=== PATIENT | male | born 1955 | race Caucasian/White ===

== ENCOUNTER 2021-05-20 08:00 | Outpatient (RCR) | payer MEDICARE, BC, SELFPAY | END 2021-06-25 14:00 | disposition home or self-care (01) | LOC: PT.CARL 08:00 | PROVIDERS: PCP Emergency Medicine; Visit Provider Orthopaedic Surgery Adult Reconstructive Orthopaedic Surgery | DX: M54.16 Radiculopathy, lumbar region (principal) | CPT/HCPCS: 97010; 97014; 97110; 97140; 97163; 97164; G0283 ==

== ENCOUNTER → 2022-09-02 07:40 | Outpatient (CLI) | payer MEDICARE, BC, SELFPAY ==
--- NOTE | 2022-09-02 07:41 | CA_ITS ---
APPROVED REPORT EXAM: Comprehensive 2D, Doppler, and color-flow Echocardiogram [employer]que Kiln Placer: Renee King RT(R) Ht: 6 ft 0 in Wt: 218lbs BSA: 2.21 BP: 180/102 mmHg Indications: Abn EKG, smoker, HTN, JVD, RBBB 2D Dimensions LVOT 2.31 cm (M/F) 1.5-2.5 LVEF (Hicks's) 58.10 % M: 52 - 72 LV Volume 131.40 mL M: 62 - 150 LV Volume Index 59.46 mL/m2 M: 34 - 74 LA Volume 39.00 mL LA Volume Index 17.65 mL/m2 (M/F) 16-34 M-Mode Dimensions RVDd 3.26 cm (0.9-2.6) LA Diam 4.00 cm (1.9-4.0) LVDd 5.34 cm (3.5-5.7) Ao Diam 3.83 cm (2.0-3.7) LVDs 4.45 cm (3.5-5.7) IVSd 0.97 cm (0.6-1.1) PWd 1.06 cm (0.6-1.1) EF (Teich) 34.60% FS 16.70% EDV (Teich) 137.70 mL ESV (Teich) 90.10 mL LV Diastology E Decel Time 190.00 (160-240 msec) E/A Ratio 1.2 MED E' 8.10 (< 7 cm/sec) E'/MED E' Ratio 9.43 (>14) LAT E' 8.40 (<10 cm/sec) E/LAT E' Ratio 9.10 (>14) Mitral Valve MV E Max Tyler. 76.00 (40-130 cm/s) MV A Velocity 65.00 (40-130 cm/s) E/A Ratio 1.18 MV Decel. Time 190.00 (160-240 ms) MV PHT 56.00 ms Left Ventricle Left atrium is mildly enlarged, left ventricle is normal size, mild concentric left ventricular hypertrophy, estimated ejection fraction 55% with no regional wall motion abnormality, grade 1 diastolic dysfunction seen without tissue Doppler evidence of raise left atrial pressure. Right Ventricle Right atrium and right ventricle are mildly enlarged with normal contractility. Aortic Valve Aortic valve is minimally thickened and fibrosed there is no aortic stenosis aortic insufficiency. Mitral Valve Mitral valve grossly normal, there is trace mitral regurgitation. Tricuspid Valve Tricuspid grossly normal, there is trace tricuspid regurgitation, tricuspid regurgitation jet velocity is inadequate for calculation of the right ventricular systolic pressure. Pulmonic Valve Pulmonic valve is poorly visualized. Great Vessels Aortic root is normal size. Inferior vena cava is poorly visualized. Pericardium No significant pericardial effusion noted. Conclusion 1. Mild biatrial enlargement, normal left ventricular size, estimated ejection fraction 55% with no regional wall motion abnormality, grade 1 diastolic dysfunction seen without tissue Doppler evidence of raise left atrial pressure. 2. Mildly enlarged right ventricle with normal contractility. 3. Trace mitral and tricuspid regurgitation. 4. No significant pericardial effusion. 5. Inferior vena cava is poorly visualized. Electronically signed by : Indra Baez MD 09/02/2022 16:31:50
--- NOTE | 2022-09-02 07:41 | CA_ITS ---
FINAL REPORT CLINICAL HISTORY: HTN FINDINGS: Aorta velocity: 109 cm/sec Right kidney: 11.5 cm. No evidence of hydronephrosis or mass. Right intrarenal RI: 0.66 Right renal artery velocity: 144 cm/sec. Right RAR (Renal artery-Aortic Ratio): 1.32 Left Kidney: 11.9 cm. No evidence of hydronephrosis or mass. Left intrarenal RI: 0.73 Left renal artery velocity: 163 cm/sec. Left RAR (Renal Artery-Aortic Ratio): 1.5 IMPRESSION: No evidence of significant renal artery stenosis. CT angiogram or postcontrast MR angiogram would be more sensitive for evaluation of possible renal artery stenosis. Reviewed, Interpreted and Dictated by Gonzalo Muniz III, MD Transcribed by Oracio Cooper Authenticated and [facility]
--- NOTE | 2022-09-02 08:37 | XR_ITS ---
FINAL REPORT TECHNIQUE: Chest PA & Lateral CLINICAL HISTORY: COUGH, follow up from pna FINDINGS: 2 views of the chest were performed. The heart size is normal. The mediastinum is within normal limits. There is no acute cardiopulmonary process. There are no pleural effusions. There is no pneumothorax. The bony thorax appears intact. IMPRESSION: No acute cardiopulmonary process. Reviewed, Interpreted and Dictated by Gonzalo Muniz III, MD Transcribed by Oracio Cooper Authenticated and [facility]
== END ==
PROVIDERS: PCP Nurse Practitioner; Visit Provider Physician Assistant
DX: F17.200 Nicotine dependence, unspecified, uncomplicated (principal); I10 Essential (primary) hypertension; I45.10 Unspecified right bundle-branch block; R94.31 Abnormal electrocardiogram [ECG] [EKG]
CPT/HCPCS: 71046; 93306; 93976

== ENCOUNTER → 2022-09-23 11:02 | Outpatient (CLI) | payer MEDICARE, BC, SELFPAY ==
--- NOTE | 2022-09-23 11:02 | NM_ITS ---
APPROVED REPORT Exam: Nuclear Stress Test Indication: Chest pain, Abnormal EKG, HTN, Tobacco use, Family history Patient Location: Outpatient Stress Tech: Mi Benton NM Tech:Sherri Lopez, ARRT, RT (R)(N) Ht: 6 ft 0 in Wt: 219 lbs HR: 64 bpm BP: 123/75 mmHg BSA: 2.21 m2 TID: 1.24 History: Chest pain, Abnormal EKG, HTN, Tobacco use, Family history Procedure: Patient received a 0.4 mg of intravenous Lexiscan, resting heart rate 64 bpm, resting blood pressure 123/75 mmHg, with Lexiscan maximum heart rate achived was 87 bpm which is Less than 85 % of the maximum predicted heart rate and blood pressure was 126/81 mmHg. With Lexiscan, patient denied any complaint of chest pain. Electrocardiogram Resting electrocardiogram shows sinus rhythm with Lexiscan there is less than 1.[address] segment depression noted from the baseline EKG. The EKG portion of the Lexiscan is nondiagnostic. Cardiac Stress and Resting SPECT Images: Cardiac Stress and Resting SPECT images were obtained using technetium 99m Myoview 32.2 mCi stress and 10.68 mCi at rest. Gated SPECT for analysis of segmental wall motion and calculation of the ejection fraction also done. Prone images were also obtained. Cardiac prone images show uniform myocardial activity without segmental perfusion abnormality, computer derived ejection fraction is 46% with no regional wall motion abnormality, right ventricle is normal size and contractility, there is mild transient ischemic dilatation of unknown clinical significance seen. Conclusion: 1. The EKG portion of the Lexiscan is nondiagnostic. 2. No scintigraphic evidence of reversible ischemia seen, computer derived ejection fraction is 46% with no regional wall motion abnormality, right ventricle is normal size and contractility, there is mild transient ischemic dilatation of the left ventricle of unknown significance seen. 3. Likely normal Lexiscan Myoview study. Electronically signed by : Indra Baez MD 09/24/2022 06:30:38
--- NOTE | 2022-09-23 11:02 | US_ITS ---
FINAL REPORT TECHNIQUE: Ultrasound images of the kidneys were obtained. CLINICAL HISTORY: I45.10 - Unspecified right bundle-branch block FINDINGS: US RETROPERITONEAL The right kidney measures 12.1 cm in length. The left kidney measures 11.5 cm in length. There is a shadowing echogenic focus in the lower pole of the left kidney measuring 8 mm which could represent a stone. There is no hydronephrosis. The spleen is unremarkable and measures 11.2 cm in length. IMPRESSION: Possible left renal stone. No hydronephrosis. Reviewed, Interpreted and Dictated by Angelica Klein MD Transcribed by Karime Selby Authenticated and [facility]
--- NOTE | 2022-09-23 13:13 | HMH.ITSHM ---
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 []TAMSULOSIN METOPROLOL LISINOPRIL
--- NOTE | 2022-09-23 13:45 | CA_ITS ---
APPROVED REPORT Exam: Pharmacologic Technologist: Mi Benton Ht: 6 ft 0 in Wt: 217 lbs BSA: 2.21 m2 HR: 59 bpm BP: 123/75 mmHg Indications: HTN, Abn EKG Medical History Medications: Lisinopril,,,,, Metoprolol,,,,, HCTZ,,,,, TAMSULOSIN,,,,, Stress Test Details Test: LEXISCAN HR Resting HR: 64 bpm Max Heart Rate (APMHR): 153.904262 bpm Max HR Achieved: 87 bpm Target HR (85% APMHR): 130.506609 bpm % of APMHR: 56.86 Recovery HR: 66 bpm BP Resting BP: 123.0/75.0 mmHg Max BP: 126.0/81.0 mmHg Recovery BP: 117.0/80.0 mmHg ECG Resting ECG: Sinus bradycardia, incomplete right bundle branch block, right axis deviation. Clinical Exercise duration: 04:00 min Highest Stage Achieved: Exercise capacity: 1.0 METs Stress ECG Conclusion Symptoms: Shortness of air, head discomfort. No chest pain. Arrhythmias/Ectopy: None ST-T Changes: No significant changes. Conclusion: Unremarkable Lexiscan stress. Myoview images reported separately. Test Summary REST . . . . . . . Resting REST 03:34 . . 64 . 123/ 75 . . Stage 1 . . . . . . . Myoview Injected Stage 1 01:00 . . 69 . . . . Stage 2 01:00 . . 79 . 118/ 71 . . Stage 3 01:00 . . 77 . . . . Stage 4 01:00 . . 70 . 125/ 72 . Stop exercise at 04:00 RECOVERY 01:00 . . 68 . . . . RECOVERY 02:00 . . 74 . 126/ 81 . . RECOVERY 03:00 . . 68 . 126/ 81 . . RECOVERY 03:25 . . 69 . 117/ 80 . . Electronically signed by : Indra Baez MD 09/24/2022 06:27:36
== END ==
PROVIDERS: PCP Nurse Practitioner; Visit Provider Physician Assistant
DX: F17.200 Nicotine dependence, unspecified, uncomplicated (principal); I10 Essential (primary) hypertension; I45.10 Unspecified right bundle-branch block; R94.31 Abnormal electrocardiogram [ECG] [EKG]
CPT/HCPCS: 76770; 78452; 93017; A9502; J2785

== ENCOUNTER → 2022-09-25 12:12 | Outpatient (CLI) | payer MEDICARE, BC, SELFPAY ==
[2022-09-25 13:40] LABS: Basophils # 0.1 K/mm3 (0-0.2); Basophils % 0.8 % (0.1-2.0); Eosinophils # 0.3 K/mm3 (0.0-0.4); Eosinophils % 3.6 % (0.1-12.0); Hematocrit 42.6 % (42.0-52.0); Hemoglobin 13.5 g/dL (14.1-18.0); Lymphocytes # 3.4 K/mm3 (0.7-4.5); Lymphocytes % 47.5 % (10-50); Mean Corpuscular HGB Conc 31.8 g/dL (31.8-35.4); Mean Corpuscular Hemoglobin 31.1 pg (27.0-31.2); Mean Corpuscular Volume 97.9 fl (80-94); Mean Platelet Volume 8.6 fl (7.4-10.4); Monocytes # 0.5 K/mm3 (0.1-1.0); Monocytes % 6.9 % (1.7-9.3); Neutrophils % 41.2 % (37.0-80.0); Platelet Count 347 K/mm3 (142-424); Red Blood Count 4.35 M/mm3 (4.60-6.20); Red Cell Distribution Width 14.5 % (11.5-17.5); White Blood Count 7.2 K/mm3 (4.8-10.8)
[2022-09-25 14:06] LABS: Alanine Aminotransferase 50 U/L (12-78); Albumin Level 4.2 g/dl (3.5-5.0); Alkaline Phosphatase 64 U/L (38-126); Anion Gap 11.8 mEq/L (5-15); Aspartate Amino Transferase 56 U/L (17-59); Bilirubin,Direct 0.2 mg/dl (0.0-0.4); Bilirubin,Indirect 0.1 mg/dL (0.0-0.9); Bilirubin,Total 0.3 mg/dl (0.2-1.3); Bilirubin,Unconjugated 0.1 mg/dL (0.0-1.1); Blood Urea Nitrogen 17 mg/dl (9-20); Carbon Dioxide 26 mmol/L (22.0-30.0); Chloride 105 mmol/L (98-107); Chol/HDL Ratio 4.3 (1-3.5); Cholesterol 192 mg/dl (140-200); Estimated Glomerular Filt Rate 134 ml/min (>60); GFR (African American) 163 ML/MIN (>60); Glucose 94 mg/dl (74-100); HDL Cholesterol 45 mg/dl (40-60); Magnesium 1.9 mg/dl (1.6-2.3); Potassium 4.8 mmoL/L (3.5-5.1); Sodium 138 mmol/L (136-145); Total Protein,Serum 7.5 g/dl (6.3-8.2); Triglycerides 112 mg/dl (30-150); VLDL Cholesterol 22 mg/dL (0-40)
[2022-09-25 14:16] LABS: Direct LDL Cholesterol 98.04 mg/dL (100-129)
[2022-09-25 14:22] LABS: Free T4 (Free Thyroxine) 0.78 ng/dl (0.78-2.19)
[2022-09-25 14:36] LABS: Thyroid Stimulating Hormone 3.13 uIU/mL (0.465-4.68)
== END ==
PROVIDERS: PCP Nurse Practitioner; Visit Provider Nurse Practitioner
DX: F17.200 Nicotine dependence, unspecified, uncomplicated (principal); I10 Essential (primary) hypertension; I45.10 Unspecified right bundle-branch block; R94.31 Abnormal electrocardiogram [ECG] [EKG]
CPT/HCPCS: 36415; 80048; 80061; 80076; 83735; 84439; 84443; 85025

== ENCOUNTER 2022-10-01 09:26 | Day surgery (SDC) | payer MEDICARE, BC, SELFPAY ==
[2022-10-01] VITALS (12 sets, daily range): BP systolic 103–166; BP diastolic 45–91; PULSE 56–75; RESP 18–19; O2SAT 95–100; BMI 29.8
--- NOTE | 2022-10-01 07:04 | IR_ITS ---
APPROVED REPORT Patient Location: Outpatient Electrical Machinist: ALIVIA Nichole RT (R) PROCEDURES Left heart catheterization Left ventriculogram Selective coronary angiogram INDICATION Abnormal Myoview, Angina pectoris Informed consent was obtained prior to the procedure. COMPLICATIONS None Estimated Blood Loss: Less than 10 mls TECHNIQUE One percent lidocaine used to anesthetize the right anterior aspect of the wrist. The right radial artery was accessed via the Seldinger technique. A 6 [place] sheath was placed in the right radial artery. 2.5 mg of verapamil, 800 mcg of nitroglycerin, 1mg Lidocaine and 5000 U Heparin were given through the arterial sheath. The papa catheter was also used to perform left heart catheterization, left ventriculogram and selective coronary angiogram. At the end of the procedure the sheath was removed good hemostasis was achieved using Traclet band, patient was transferred to the postop holding area in stable condition. ANGIOGRAPHIC RESULTS The left main artery Normal The left anterior descending artery Has mild diffuse 10 to 20% luminal irregularities The circumflex artery Mild diffuse 10 to 20% luminal regularities The right coronary artery Dominant mild diffuse 10 to 20% luminal regularities The CERNA ventriculogram reveals Dilated ventricle with preserved ejection fraction of 55% The left ventricular end-diastolic pressure 20 to 25 mmHg IMPRESSION Mild nonflow limiting coronary artery disease with slow flow down the coronary arteries consistent with endothelial dysfunction Elevated LVEDP with dilated ventricle consistent with diastolic dysfunction Preserved ejection fraction PLAN 1. Treatment of both diastolic dysfunction as well as endothelial dysfunction 2. Standard risk factor modification Electronically signed by : Min Quinonez MD 10/01/2022 11:49:11
== END 2022-10-01 14:39 | disposition home or self-care (01) ==
PROVIDERS: PCP Nurse Practitioner; Visit Provider Internal Medicine
DX: I25.118 Atherosclerotic heart disease of native coronary artery with other forms of angina pectoris (principal); R94.39 Abnormal result of other cardiovascular function study; F17.210 Nicotine dependence, cigarettes, uncomplicated; I45.10 Unspecified right bundle-branch block; Z79.899 Other long term (current) drug therapy; I10 Essential (primary) hypertension
CPT/HCPCS: 93458; 99152; C1725; C1760; C1769; J1644; Q9967

== ENCOUNTER 2023-09-15 10:56 | Outpatient (CLI) | payer MEDICARE, SELFPAY ==
--- NOTE | 2023-09-15 11:01 | US_ITS ---
FINAL REPORT CLINICAL HISTORY: ENZYMES ABOVE RANGE FINDINGS: Ultrasound images of the right upper quadrant were obtained. The liver parenchyma is normal in echogenicity. The gallbladder is well visualized and the wall appears normal. There are no gallstones. The common duct is normal. Limited images of the right kidney are unremarkable. IMPRESSION: No acute process. Reviewed, Interpreted and Dictated by Gonzalo Muniz III, MD Transcribed by Oracio Cooper Authenticated and [facility]
== END 2023-09-15 23:59 ==
LOC: RAD 10:56
PROVIDERS: PCP Nurse Practitioner; Visit Provider Nurse Practitioner
DX: R74.01 Elevation of levels of liver transaminase levels (principal)
CPT/HCPCS: 76705

== ENCOUNTER 2024-10-25 14:00 | Outpatient (RCR) | payer MEDICARE, SELFPAY | END 2024-10-25 23:59 | disposition home or self-care (01) | LOC: PT 14:00 | PROVIDERS: PCP Nurse Practitioner; Visit Provider Physician Assistant | DX: M47.812 Spondylosis without myelopathy or radiculopathy, cervical region (principal); M54.12 Radiculopathy, cervical region | CPT/HCPCS: 97014; 97110; 97112; 97140; 97163; G0283 ==

== ENCOUNTER 2025-06-12 10:26 | Day surgery (SDC) | payer MEDICARE, SELFPAY ==
[2025-06-06 14:23] VITALS: BMI 29.5
--- NOTE | 2025-06-08 17:57 | EXP.HP ---
History of Present Illness *Admission Date: 06/12/25 *Reason for visit:: Positive Cologuard *History of present illness: Mr. Oropeza is a 69-year-old gentleman who is here for screening colonoscopy secondary to a positive Cologuard test. The examination is deemed medically necessary for screening colonoscopy. The patient has been seen, interviewed and examined prior to the procedure by both myself and the anesthesia provider. [facility] Disclaimer: The information contained in this section may have been updated after the patient was seen, as this information can be updated by other users. 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 Surgical History No history of previous surgery Family History Mother Cancer Sister Cancer Grandfather Coronary artery disease Diabetes Heart attack Other Hypertension Social History (Updated 06/12/25 @ 10:51 by Dania Edward RN) Smoking Status: Current every day smoker tobacco type: cigarettes years smoked: 50 alcohol intake: current alcohol intake frequency: a few times a week substance use type: former substance user, marijuana, opiates and painkillers current occupational status: unemployed Travel in the last 8 weeks?: Inside the [place] Have you lived/traveled outside US in past 30 days?: No Contact w/someone who lives/traveled outside US past 30 days?: No Exposure to someone with infectious disease in past 14 days?: No Do you have a fever (greater than 100.4 F or 38 C)?: No Have you tested positive for COVID-19?: No Exposed to someone with COVID-19 in past 14 days?: No Do you have a sore throat?: No Do you have a cough?: No Do you have any weakness?: No Are you experiencing any nausea/vomitting?: No Do you have any diarrhea?: No Are you experiencing any unusual bleeding?: No Do you have any muscle aches/pain?: No Do you have any abdominal pain?: No Are you experiencing loss of taste or smell?: No Other Medical History Have you received the Pneumonia Vaccine: No Review of Systems Review of Systems Review of systems (narrative): Negative *Cardiovascular Comments: Negative *Gastrointestinal Comments: Negative *Genitourinary Comments: Negative *Musculoskeletal Comments: Negative *Neurologic Comments: Negative Meds Home Medications and Allergies Home Medications ?Medication ?Instructions ?Recorded ?Confirmed ?Type tamsulosin 0.4 mg capsule 0.4 mg PO DAILY . 08/20/22 06/12/25 History varenicline tartrate 0.5 mg (11)-1 See Rx Instructions PO PER PKG DIR 05/26/23 06/12/25 Rx mg (42) tablets in a dose pack #53 tabs (Chantix Starting Month Box) varenicline tartrate 1 mg tablet 1 mg PO BID 12 weeks #168 tabs 05/26/23 06/12/25 Rx (Chantix Continuing Month Box) aspirin 81 mg tablet,delayed 81 mg PO DAILY #90 tabs 12/07/23 06/12/25 Rx release sildenafil 100 mg tablet (Viagra) 100 mg PO DAILY PRN Erectile 12/06/24 06/12/25 History Dysfunction sodium sul 1.479 gram-potas ch See Rx Instructions PO PER PKG DIR 05/31/25 06/12/25 Rx 0.188 gram-magnes sul 0.225 gram colonscopy #24 tabs tablet (Sutab) sodium,potassium,mag sulfates 17.5 See Rx Instructions PO .COMPLEX 05/31/25 06/12/25 Rx gram-3.13 gram-1.6 gram oral soln #354 mL (Suprep Bowel Prep Kit) fluoxetine 20 mg capsule (Prozac) 20 mg PO DAILY 06/06/25 06/12/25 History lisinopril 20 1 tab PO DAILY 06/07/25 06/12/25 History mg-hydrochlorothiazide 25 mg tablet sofosbuvir 400 mg-velpatasvir 100 1 tab PO DAILY 06/07/25 06/12/25 History mg tablet New Prescriptions to Start Prescriptions: Allergies Allergy/AdvReac Type Severity Reaction Status Date / Time No Known Allergies Allergy Verified 06/12/25 11:02 Exam Data for Last 24 hours I & O for Last 24 hours: Intake & Output 06/05/25 06/06/25 06/07/25 06/08/25 23:59 23:59 23:59 23:59 Weight 212 lb *Routine HEENT Exam Head: Present normocephalic Eye: Present EOMI and PERRL ENT: Present mucous membranes moist *Routine Neck Exam Neck: Present supple *Routine Respiratory Exam Respiratory: Present CTA bilaterally *Routine Cardiovascular Exam Cardiovascular: Present RRR *Routine Abdominal Exam Abdominal: Present soft and normoactive bowel sounds; Absent tenderness *Routine Rectal Exam Rectal:: deferred *Routine Genitalia Exam Genitalia:: deferred *Routine Extremities Exam Extremities: Absent cyanosis, clubbing or edema *Routine Skin Exam Skin: Present warm; Absent rash *Routine Neurological Exam Neurological: Present alert and oriented X3 Assessment and Plan *Assessment and plan (1) Positive colorectal cancer screening using Cologuard test: Status: Acute Category: Medical Code(s): R19.5 - Other fecal abnormalities (2) Screening for colon cancer: Status: Acute Category: Medical Code(s): Z12.11 - Encounter for screening for malignant neoplasm of colon Plan A/P: 1. Positive Cologuard test is the preprocedural diagnosis. The patient will be anesthetized/sedated using MAC sedation. The patient has been seen and examined. Cardiac and lung assessment prior to the examination is stable. Proceed with planned screening colonoscopy.
--- NOTE | 2025-06-12 06:49 | HMH.PROCNOTE ---
[facility] Procedure Note Date: 06/12/25 Time: 12:06 Procedure Note:: Colonoscopy Procedure Report: Colonoscopy with cold snare polypectomy Endoscopist: Ryder Gomez II, MD Referring physician: Alivia Taylor PA-C Date of Procedure: June 12, 2025 Equipment: Olympus [id number] adult colonoscope Sedation: MAC sedation Indication: Mr. Oropeza is a 69-year-old gentleman who is here for initial screening colonoscopy secondary to a positive Cologuard test. The patient reports no abdominal pain, weight loss, change in his bowel habits or rectal bleeding. He reports no family history of colon cancer. The examination is deemed medically necessary for screening colonoscopy. Procedure: Prior to the procedure, a history and physical exam was performed, and patient's medications and allergies were reviewed. The risks, benefits and alternatives of the sedation and procedure were discussed with the patient. All questions were answered and informed consent was obtained. The patient was brought to the procedure room. Patient identification and proposed procedure were verified by the physician and the nurse. The patient was placed in a left lateral decubitus position and the scope was passed under direct vision. Throughout the procedure, the patient's blood pressure, pulse, and oxygen saturations were monitored continuously. The colonoscopy was accomplished without difficulty. The patient tolerated the procedure well. Findings: On digital rectal examination there was normal rectal tone. There were no external hemorrhoids. The colonoscope was introduced through the anal canal to the rectum and advanced to the cecum. The ileocecal valve and appendiceal orifice were identified. The scope was advanced a short distance into the ileum which appeared grossly normal. The scope was then withdrawn into the colon. The cecum and ascending colon were grossly normal. There were 4 colon polyps (transverse x 2 (4 and 4 mm) and descending x 2 (4 and 6 mm)). These were all removed via cold snare polypectomy. There were scattered diverticuli throughout the descending and sigmoid colon (LEFT colon). The rectum itself was normal. Upon retroflexion within the rectum there were grade 1-2 internal hemorrhoids. The preparation was fair throughout with [place] Preparation Score of 7 out of 9. The cecal time was 14 minutes. Impression: 1. Diminutive colonic polyps x 4 2. Mild left-sided diverticulosis 3. Grade 1-2 internal hemorrhoids Plan: I will follow-up the polyp histology and recommend repeat screening/surveillance colonoscopy again in 5 years. I would encourage psyllium bulking fiber supplementation on a maintenance basis.
[2025-06-12 10:48] VITALS: BP 174/90; PULSE 68; RESP 16; TEMP 36.3; O2SAT 97; BMI 29.5
[2025-06-12] MEDS: LACTATED RINGERS 1000ML 1,000 ML 50 ML IV (11:05)
--- NOTE | 2025-06-12 11:13 | P.PNANES_ITS ---
[facility] Disclaimer: The information contained in this section may have been updated after the patient was seen, as this information can be updated by other users. 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 Surgical History No history of previous surgery Family History Mother Cancer Sister Cancer Grandfather Coronary artery disease Diabetes Heart attack Other Hypertension Social History (Updated 06/12/25 @ 10:51 by Dania Edward RN) Smoking Status: Current every day smoker tobacco type: cigarettes years smoked: 50 alcohol intake: current alcohol intake frequency: a few times a week substance use type: former substance user, marijuana, opiates and painkillers current occupational status: unemployed Travel in the last 8 weeks?: Inside the [place] Have you lived/traveled outside US in past 30 days?: No Contact w/someone who lives/traveled outside US past 30 days?: No Exposure to someone with infectious disease in past 14 days?: No Do you have a fever (greater than 100.4 F or 38 C)?: No Have you tested positive for COVID-19?: No Exposed to someone with COVID-19 in past 14 days?: No Do you have a sore throat?: No Do you have a cough?: No Do you have any weakness?: No Are you experiencing any nausea/vomitting?: No Do you have any diarrhea?: No Are you experiencing any unusual bleeding?: No Do you have any muscle aches/pain?: No Do you have any abdominal pain?: No Are you experiencing loss of taste or smell?: No [facility] Anesthesia Checklist Patient Identification Patient Identification: Arm Band and Verbal (Name & ) Structural Data Admitted From: Home Planned Operative Procedure/s: Colonoscopy Consent for Planned Operative Procedure(s) Verified: Yes Verified Documents: Surgical Consent NPO Status Verified Time NPO: 00:00 Additional verifications Anesthesia Reactions: No Airway Assessment Mallampati Score:: Class II C-Spine Mobility Assessed: Yes TMJ Mobility Assessed: Yes Dentition: Edentulous Neurological Assessment Level of Consciousness: Awake, Alert and Appropriate Hx Seizures: No Numbness or tingling in extremities: No Anesthesia Plan Anesthesia Risk discussed: Yes Anesthesia Plan: Verified ASA Class: II Anesthesia Type: MAC
[2025-06-12 12:10] VITALS: BP 101/60; PULSE 55; RESP 16; TEMP 36.7; O2SAT 98
[2025-06-12 12:20] VITALS: BP 113/61; PULSE 55; RESP 16; O2SAT 98
[2025-06-12 12:30] VITALS: BP 118/70; PULSE 58; RESP 18; O2SAT 97
[2025-06-12 12:40] VITALS: BP 133/77; PULSE 62; RESP 18; O2SAT 95
== END 2025-06-12 12:47 | disposition home or self-care (01) ==
PROVIDERS: PCP Nurse Practitioner; Visit Provider Internal Medicine Gastroenterology
PROC: 0DJD8ZZ Inspection of Lower Intestinal Tract, Via Natural or Artificial Opening Endoscopic (ICD-10-PCS; CPT 45378; principal; 2025-06-12 12:00)
DX: Z12.11 Encounter for screening for malignant neoplasm of colon (principal); D12.4 Benign neoplasm of descending colon; D12.3 Benign neoplasm of transverse colon; R19.5 Other fecal abnormalities; K57.30 Diverticulosis of large intestine without perforation or abscess without bleeding; K64.1 Second degree hemorrhoids; I51.9 Heart disease, unspecified; E78.5 Hyperlipidemia, unspecified; I25.10 Atherosclerotic heart disease of native coronary artery without angina pectoris; F17.210 Nicotine dependence, cigarettes, uncomplicated; Z79.899 Other long term (current) drug therapy; Z79.82 Long term (current) use of aspirin
CPT/HCPCS: 45385; J2003; J2704; J7120